=== PATIENT | female | born 1945 | race Caucasian/White ===

== ENCOUNTER → 2016-11-22 | Outpatient (CLI) | payer OTHER ==
[~2016-11-22] MED LIST: GEMF600T3 PO; HYDR-3583 PO; LISI20TA PO; NAPR-243 PO
== END ==
LOC: CARD 12:13
PROVIDERS: ATTEND Internal Medicine Cardiovascular Disease
DX: I10 Essential (primary) hypertension (principal); E78.2 Mixed hyperlipidemia; R01.1 Cardiac murmur, unspecified; Z72.0 Tobacco use
CPT/HCPCS: 93306

== ENCOUNTER → 2017-09-09 | Outpatient (CLI) | payer OTHER ==
--- NOTE | 2017-09-09 10:28 | Diagnostic Imaging Report ---
PROCEDURE: CT urinary tract, rule out kidney stone. TECHNIQUE: Multiple contiguous axial images were obtained through the abdomen and pelvis without the use of intravenous contrast. INDICATION: Microhematuria. COMPARISON: None. FINDINGS: Included portions of the lung bases are clear. CT ABDOMEN: Multiple bilateral nonobstructive renal calculi are identified. No ureteral calculi seen on either side. Additionally, there is no hydroureteronephrosis or other evidence of obstruction. No focal renal masses are seen on this noncontrast exam. The spleen, adrenal glands, pancreas, and liver have an unremarkable noncontrast CT appearance. Note is made of cholelithiasis. Normal appendix cannot be adequately identified, but there is no pericecal inflammation. Small bowel loops are nondistended. Large diverticulum is noted involving the second portion the duodenum. Note is also made of moderate colonic diverticulosis, but no CT evidence of acute diverticulosis. There is no loculated fluid collection, free fluid, nor free air within the abdomen. There is moderate tortuosity and calcified aortic atherosclerosis. No abnormal mesenteric or retroperitoneal adenopathy is seen. Bony structures show no acute abnormalities. CT PELVIS: Urinary bladder is unopacified. No calculi are seen within urinary bladder. There is no loculated fluid collection, free fluid, or free air. Bony structures show no acute abnormalities. IMPRESSION: 1. Multiple bilateral nonobstructive renal calculi. 2. No ureteral calculi, hydroureteronephrosis, nor evidence of obstruction. 3. Cholelithiasis. 4. Diverticulosis, but no CT evidence of acute diverticulitis. Dictated by: Dictated on workstation # [id number]
== END ==
LOC: RAD 09:33
PROVIDERS: ATTEND Nurse Practitioner Family
DX: N20.0 Calculus of kidney (principal); K80.20 Calculus of gallbladder without cholecystitis without obstruction; K57.30 Diverticulosis of large intestine without perforation or abscess without bleeding
CPT/HCPCS: 74176

== ENCOUNTER 2017-09-23 09:17 | Outpatient (RCR) | payer OTHER ==
--- NOTE | 2017-09-16 13:17 | Diagnostic Imaging Report ---
EXAMINATION: Abdominal radiographs, single supine view, two images. DATE: September 16, 2017. CLINICAL INDICATION: 71-year-old female, abdominal pain. History of renal stones. COMPARISON: CT abdomen and pelvis September 09, 2017. COMMENTS: There are areas of calcific attenuation projecting over the expected positions of the kidneys compatible with nonobstructing renal stones which are also visible on recent prior CT. There are multiple punctate foci of high attenuation overlying the abdomen, which could relate to film artifact or enteric contents. There is no obvious abnormal radiodensity projecting directly over the expected positions of the ureters. Right upper quadrant calcifications are compatible with gallstones. There are no abnormally distended gas-filled segments of bowel. There is no identified free intraperitoneal air on supine evaluation. There is no identified pneumatosis or portal venous gas. There are degenerative changes of the lower lumbar spine. There is a mild lower lumbar levocurvature. IMPRESSION: 1. Nonobstructing renal stones bilaterally. No clearly identified ureteral stone on radiographic analysis. 2. Gallstones. 3. Unremarkable bowel gas pattern. Dictated by: Dictated on workstation # [id number]
[2017-09-16 13:26] LABS: CALCIUM 10.1 MG/DL (8.5-10.1); CREATININE SERUM 1.15 MG/DL (0.60-1.30); PHOSPHORUS 2.8 MG/DL (2.3-4.7); POTASSIUM 4.6 MMOL/L (3.6-5.0); URIC ACID 6.6 MG/DL (2.6-7.2)
== END 2017-10-04 | disposition home or self-care (01) ==
LOC: LAB 09:17
PROVIDERS: ATTEND Urology
DX: N20.0 Calculus of kidney (principal)
CPT/HCPCS: 36415; 74018; 80048; 82140; 82340; 82507; 82570; 83735; 83945; 83970; 83986; 84100; 84105; 84133; 84300; 84392; 84550; 84560

== ENCOUNTER → 2017-10-05 | Outpatient (CLI) | payer OTHER | LOC: RAD 11:33 | PROVIDERS: ATTEND Internal Medicine Cardiovascular Disease | DX: I08.2 Rheumatic disorders of both aortic and tricuspid valves (principal); I10 Essential (primary) hypertension; E78.2 Mixed hyperlipidemia; R01.1 Cardiac murmur, unspecified; Z72.0 Tobacco use | CPT/HCPCS: 93306 ==

== ENCOUNTER → 2017-10-10 | Outpatient (CLI) | payer OTHER | LOC: RAD 10:12 | PROVIDERS: ATTEND Internal Medicine Cardiovascular Disease | DX: I35.0 Nonrheumatic aortic (valve) stenosis (principal); I10 Essential (primary) hypertension; E78.2 Mixed hyperlipidemia; R01.1 Cardiac murmur, unspecified; Z53.8 Procedure and treatment not carried out for other reasons; Z72.0 Tobacco use | CPT/HCPCS: 36415; 80048; 83970; 84100; 84550 ==

== ENCOUNTER → 2019-08-14 | Outpatient (CLI) | payer MEDICARE, OTHER | LOC: CARD 11:35 | PROVIDERS: ATTEND Internal Medicine Cardiovascular Disease | DX: I08.3 Combined rheumatic disorders of mitral, aortic and tricuspid valves (principal); E78.2 Mixed hyperlipidemia; I10 Essential (primary) hypertension | CPT/HCPCS: 93306 ==

== ENCOUNTER → 2019-08-15 | Outpatient (CLI) | payer MEDICARE, OTHER ==
[~2019-08-15] VITALS: Ht 163 cm; Wt 70.0 kg
[~2019-08-15] MED LIST changes: +CATHETER FLUSH 10 ML SYR IV PRN; +REGADENOSON 0.4 MG/5 ML SYR (LEXISCAN) IV ONE
[2019-08-15 16:46] VITALS: BP 169/80
--- NOTE | 2019-08-15 16:46 | Cardiology Stress Test Report ---
Stress Test Report Date of Procedure/Referring: Date of Procedure: Aug 15, 2019 PCP Clement Casper MD Admitting Physician No,Local Physician Indications: Abnormal EKG Baseline Heart Rate: 73 Baseline Blood Pressure: Blood Pressure Systolic: 169 Blood Pressure Diastolic: 80 Baseline EKG: Baseline EKG: Normal sinus rhythm Summary: Patient received 0.4 mg Lexiscan for stress test, ECG, heart rate and blood pressure were monitored continuously. Resting and stress dose of radio tracer were injected, imaging was acquired and reviewed in short axis, horizontal long axis and vertical long axis views. TID 1.05 SSS 3 SDS 3 EF 84% and 42% Conclusion: 1. Patient tolerated Lexiscan well 2. Good radiotracer uptake with no significant ischemia or infarction on SPECT images 3. Normal left ventricular size with normal contractility, calculated ejection fraction is 84 percent, on another modality to us 42 percent. Probably due to processing abnormality CLEMENT CASPER MD Aug 15, 2019 16:46
== END ==
LOC: CARD 08:01
PROVIDERS: ATTEND Internal Medicine Cardiovascular Disease
DX: R94.31 Abnormal electrocardiogram [ECG] [EKG] (principal); R07.89 Other chest pain
CPT/HCPCS: 78452; 93017

== ENCOUNTER → 2022-05-28 | Outpatient (CLI) | payer OTHER ==
[~2022-05-28] MED LIST changes: -CATHETER FLUSH 10 ML SYR IV PRN; -REGADENOSON 0.4 MG/5 ML SYR (LEXISCAN) IV ONE
== END ==
LOC: CARD 08:28
PROVIDERS: ATTEND Internal Medicine Cardiovascular Disease
DX: I11.9 Hypertensive heart disease without heart failure (principal); I08.0 Rheumatic disorders of both mitral and aortic valves
CPT/HCPCS: 93306